=== PATIENT | male | born 1955 | race Caucasian/White ===

== ENCOUNTER → 2021-09-22 11:38 | Outpatient (BNVA) | payer OTHER, SELFPAY | PROVIDERS: Family Provider Family Medicine; PCP Family Medicine; Visit Provider Family Medicine | DX: Z76.89 Persons encountering health services in other specified circumstances (principal); Z12.5 Encounter for screening for malignant neoplasm of prostate; E03.9 Hypothyroidism, unspecified; E78.2 Mixed hyperlipidemia | CPT/HCPCS: 80053; 80061; 84153; 84439; 84443; 85025 ==

== ENCOUNTER → 2022-04-13 11:29 | Outpatient (BNVA) | payer MEDICARE, SELFPAY | PROVIDERS: Family Provider Family Medicine; PCP Family Medicine; Visit Provider Nurse Practitioner Family | DX: M79.675 Pain in left toe(s) (principal) | CPT/HCPCS: 73630 ==

== ENCOUNTER → 2022-11-23 09:51 | Outpatient (BNVA) | payer MEDICARE, SELFPAY | PROVIDERS: Family Provider Family Medicine; PCP Family Medicine; Visit Provider Family Medicine | DX: E78.2 Mixed hyperlipidemia (principal); E03.9 Hypothyroidism, unspecified; Z12.5 Encounter for screening for malignant neoplasm of prostate | CPT/HCPCS: 80053; 80061; 84439; 84443; 85027; G0103 ==

== ENCOUNTER → 2023-11-14 10:29 | Outpatient (BNVA) | payer MEDICARE, SELFPAY | PROVIDERS: Family Provider Family Medicine; PCP Family Medicine | DX: Z12.5 Encounter for screening for malignant neoplasm of prostate (principal); E78.2 Mixed hyperlipidemia; E03.9 Hypothyroidism, unspecified | CPT/HCPCS: 80053; 80061; 84439; 84443; 85025; G0103 ==

== ENCOUNTER 2024-02-18 14:50 | Emergency (ER) | payer MEDICARE, SELFPAY ==
[2024-02-18 15:08] VITALS: BP 145/90; PULSE 82; RESP 18; TEMP 36.7; O2SAT 96; BMI 29.7
--- NOTE | 2024-02-18 16:16 | ED_ITS ---
HPI - Epistaxis General: Chief complaint: Epistaxis Stated complaint: heavy nose bleed Time Seen by Provider: 02/18/24 16:08 Source: patient Mode of arrival: ambulatory Limitations: no limitations History of Present Illness: 68-year-old male states that he blew his nose earlier and had a nosebleed out of his right nare states never had a nosebleed in the past states it lasted roughly 20 minutes is since resolved he has no bleeding at this time. He is not on any blood thinners states it was just relieved with pressure. Associated symptoms: Deny fever(s), headache(s) or vomiting Related Data Previous Rx's Medication Instructions Recorded fluticasone propionate 50 1 spray intranasal BID #16 grams 05/01/23 mcg/actuation nasal spray,suspension (Flonase Allergy Relief) levothyroxine 75 mcg tablet See Rx Instructions .Route 11/15/23 .COMPLEX #30 tabs pravastatin 40 mg tablet See Rx Instructions .Route 11/15/23 .COMPLEX #90 tabs buspirone 5 mg tablet 5 mg PO TID #30 tabs 12/01/23 Allergies Allergy/AdvReac Type Severity Reaction Status Date / Time indomethacin [From Indocin] Allergy Severe SOB Verified 02/18/24 15:14 codeine Allergy Mild N/V Verified 02/18/24 15:14 Review of Systems Const: Denies: fever(s), chills, body aches or change in appetite ENMT: Reports: epistaxis; Denies: throat pain or dental pain Card: Denies: chest pain Resp: Denies: dyspnea GI: Denies: abdominal pain, nausea, vomiting or diarrhea Musc: Denies: neck pain or back pain Skin/Breast: Denies: rash Neuro: Denies: headache(s) PFSH ED PFSH: Medical History Elevated blood pressure reading in office with white coat syndrome, without diagnosis of hypertension Obstructive sleep apnea on CPAP Left groin hernia Surgical History History of tonsillectomy Family History Father Anesthesia complication Mother CAD (coronary artery disease) bypass, heart value replacement Hypertension Denies family history of Diabetes Clotting disorder Dementia Hyperlipidemia Psychiatric illness Chronic kidney disease (CKD) Suicide Bleeding disorder Family history of premature coronary artery disease Lung disease Cancer Stroke Social History Smoking and tobacco/nicotine status: never used tobacco/nicotine Physical Exam Const: COMMON NORMALS: no acute distress, patient oriented x3 and healthy appearing HENMT: COMMON NORMALS: normocephalic and atraumatic HEAD & SCALP: normocephalic and atraumatic OTHER: No nosebleed at this time Eye: COMMON NORMALS: Equal, round and reactive pupils present and EOMs intact bilaterally PUPIL: Yes Equal, round and reactive pupils present Neck/C-Spine: COMMON NORMALS: full ROM and supple Chest: COMMONS NORMALS: normal inspection of the chest Resp: COMMON NORMALS: normal respiratory effort Cardio: COMMON NORMALS: regular rate RATE: regular rate Extremity: COMMON NORMALS: normal to inspection and full ROM Neuro: COMMON NORMALS: patient oriented x3, moves all extremities and no focal motor deficits Psych: COMMON NORMALS: mental status grossly normal, Normal thought process present and cooperative THOUGHT PROCESS: Normal thought process present Skin: COMMON NORMALS: no rashes or lesions noted and no wounds GENERAL SKIN EXAM: no rashes or lesions noted Course Vital Signs: Vital signs: Vital Signs Temperature 98.0 F 02/18/24 15:08 Pulse Rate 82 02/18/24 15:08 Respiratory Rate 18 02/18/24 15:08 Blood Pressure 145/90 02/18/24 15:08 Pulse Oximetry 96 02/18/24 15:08 MDM - Epistaxis Medical Decision Making Patient presents with a nosebleed that is resolved he is well-appearing here he is stable for discharge follow-up PCP return if worsening. Medical Records I reviewed the patient's medical records. No radiology studies performed this visit Discharge Plan Discharge Patient Disposition: Home Clinical Impression: Epistaxis Condition: Stable Prescriptions: No Action buspirone 5 mg tablet 5 mg PO TID Qty: 30 0RF fluticasone propionate [Flonase Allergy Relief] 50 mcg/actuation spray,suspension 1 spray intranasal BID Qty: 16 0RF Rx Instructions: administer into each nostril levothyroxine 75 mcg tablet See Rx Instructions .ROUTE .COMPLEX Qty: 30 2RF Dose Instruction: TAKE 1 TABLET DAILY Rx Instructions: TAKE 1 TABLET DAILY pravastatin 40 mg tablet See Rx Instructions .ROUTE .COMPLEX Qty: 90 3RF Dose Instruction: TAKE 1 TABLET DAILY Rx Instructions: TAKE 1 TABLET DAILY Discharge Orders: Discharge ED (Routine); Ordered 02/18/24 Ordered By: Gabino Jackson Referrals: Huan Fleming DO [Primary Care Provider] - 4-7 days Rigoberto Osborne MD [Family Provider] - Discharge Diet: Advance as tolerated Discharge Activity: Resume usual activity Patient Instructions: Nosebleed (ED) Coding Level of Care Code ED Vertical Contour Band Saw Operator for Leti Romo
== END 2024-02-18 21:05 | disposition home or self-care (01) ==
PROVIDERS: Emergency Provider Emergency Medicine; Family Provider Family Medicine; PCP Family Medicine
DX: R04.0 Epistaxis (principal)
CPT/HCPCS: 99281

== ENCOUNTER → 2024-02-28 09:19 | Outpatient (BNVA) | payer MEDICARE, SELFPAY | PROVIDERS: Family Provider Family Medicine | DX: E03.9 Hypothyroidism, unspecified (principal); E78.2 Mixed hyperlipidemia | CPT/HCPCS: 80053; 84439; 84443 ==

== ENCOUNTER → 2024-08-14 08:59 | Outpatient (BNVA) | payer MEDICARE, SELFPAY | DX: E78.2 Mixed hyperlipidemia (principal); E03.9 Hypothyroidism, unspecified | CPT/HCPCS: 80053; 80061; 84443 ==